=== PATIENT | male | born 1930 | race Caucasian/White ===

== ENCOUNTER 2018-09-11 09:52 | Outpatient (CLI) | payer OTHER | END 2018-09-11 10:12 | disposition home or self-care (01) | LOC: SONOGRAMA 09:52 | DX: M25.512 Pain in left shoulder (principal) ==

== ENCOUNTER 2019-07-21 15:52 | Outpatient (CLI) | payer OTHER | END 2019-07-21 15:57 | disposition home or self-care (01) | LOC: RAD 15:52 | DX: R91.1 Solitary pulmonary nodule (principal) ==

== ENCOUNTER 2019-08-27 13:20 | Outpatient (CLI) | payer OTHER | END 2019-08-27 13:28 | disposition home or self-care (01) | LOC: SONOGRAMA 13:20 | DX: N40.1 Benign prostatic hyperplasia with lower urinary tract symptoms (principal); R35.0 Frequency of micturition; C61 Malignant neoplasm of prostate ==

== ENCOUNTER 2021-07-13 09:02 | Outpatient (CLI) | payer OTHER | END 2021-07-13 09:18 | disposition home or self-care (01) | LOC: NUCLEAR 09:02 | PROVIDERS: ATTEND Obstetrics & Gynecology | DX: I80.3 Phlebitis and thrombophlebitis of lower extremities, unspecified (principal) ==

== ENCOUNTER 2021-07-15 09:04 | Outpatient (CLI) | payer OTHER | END 2021-07-15 09:09 | disposition home or self-care (01) | LOC: NUCLEAR 09:04 | PROVIDERS: ATTEND Obstetrics & Gynecology | DX: I80.3 Phlebitis and thrombophlebitis of lower extremities, unspecified (principal) ==

== ENCOUNTER 2021-09-29 11:04 | Outpatient (CLI) | payer OTHER | END 2021-09-29 11:14 | disposition home or self-care (01) | LOC: RAD 11:04 | PROVIDERS: ATTEND Internal Medicine Rheumatology | DX: M17.0 Bilateral primary osteoarthritis of knee (principal) ==

== ENCOUNTER 2022-01-05 08:16 | Outpatient (CLI) | payer OTHER | END 2022-01-05 08:19 | disposition home or self-care (01) | LOC: SONOGRAMA 08:16 | PROVIDERS: ATTEND Urology | DX: N40.1 Benign prostatic hyperplasia with lower urinary tract symptoms (principal); R35.0 Frequency of micturition; C61 Malignant neoplasm of prostate ==